=== PATIENT | female | born 1995 | race Caucasian/White ===

== ENCOUNTER 2016-09-13 14:28 | Outpatient (CLI) | payer MEDICAID | END 2016-09-13 15:04 | disposition home or self-care (01) | LOC: LC 14:28 | PROVIDERS: ATTEND Obstetrics & Gynecology | DX: Z36 Encounter for antenatal screening of mother (principal); Z3A.35 35 weeks gestation of pregnancy | CPT/HCPCS: 59025 ==

== ENCOUNTER → 2019-01-24 | Outpatient (CLI) | payer MEDICAID ==
--- NOTE | 2019-01-24 09:30 | RADIOLOGY REPORT (SQ) ---
EXAM DESCRIPTION: MRI LUMBAR SPINE WITHOUT COMPLETED DATE/TIME: 01/24/2019 8:44 am REASON FOR STUDY: LOW BACK PAIN M54.5 LOW BACK PAIN COMPARISON: None. TECHNIQUE: Sagittal and Axial imaging includes T1, T2, STIR and gradient echo sequences. Coronal T2/ HASTE imaging. LIMITATIONS: None. FINDINGS: VISUALIZED UPPER ABDOMEN: Limited evaluation. Gallstones. No acute or suspicious findin gs suggested. SEGMENTATION: No transitional anatomy. The lowest well-developed disc space is labeled L5-S1. ALIGNMENT: Anatomic. VERTEBRAE: Intact. BONE MARROW: Normal. No marrow replacement or reactive changes. DISC SIGNAL: Normal. No significant abnormal signal or loss of height. POSTERIOR ELEMENTS: Generally intact. No pars defect evident. Mild facet arthropathy in the lower lumbar spine. HARDWARE: Hardware in the thoracolumbar region with posterior screws and rods at L1 and L2. CORD AND CONUS: Normal in size and signal intensity. Conus at the appropriate level. SOFT TISSUES: No aortic aneurysm seen. No bulky retroperitoneal adenopathy or mass. No paraspinal mas s or fluid. L1-L2: No significant spinal stenosis or exit foraminal stenosis. L2-L3: No significant spinal stenosis or exit foraminal stenosis. L3-L4: No significant spinal stenosis or exit foraminal stenosis. L4-L5: No significant spinal stenosis or exit foraminal stenosis. L5-S1: No significant spinal stenosis or exit foraminal stenosis. LOWER THORACIC: Incompletely imaged. No stenosis seen. SACRUM: Visualized upper sacrum intact. OTHER: No other significant findings. IMPRESSION: 1. THORACOLUMBAR HARDWARE. MILD FACET ARTHROPATHY IN THE LOWER LUMBAR SPINE. NO OTHER SIGNIFICANT F INDINGS. NO DISC DISEASE, STENOSIS, OR IMPINGEMENT. 2. GALLSTONES. TECHNICAL DOCUMENTATION: JOB ID: [id number] [employer]- All Rights Reserved Reading location - IP/workstation name: [email or web address]
== END ==
LOC: RAD 07:50
PROVIDERS: ATTEND Physician Assistant
DX: M54.5 Low back pain (principal); K80.80 Other cholelithiasis without obstruction
CPT/HCPCS: 72148

== ENCOUNTER 2019-10-01 10:00 | Emergency (ER) | payer MEDICAID ==
[2019-10-01] MEDS ORDERED: CYCLOBENZAPRINE HCL 10 MG TABLET PO ONE (10:13)
[2019-10-01] MEDS ORDERED: KETOROLAC TROMETHAMINE 60 MG/2 ML SDV IM ONE (10:13)
[2019-10-01] MEDS ORDERED: METHYLPREDNISOLONE INJ 40 MG/1 ML SDV IM ONE (10:13)
--- NOTE | 2019-10-01 10:14 | ER Document Report ---
HPI - HPI Patient complains to provider of: back pain Time Seen by Provider: 10/01/19 10:07 Pain Level: 4 Context: 24-year-old female past medical history significant for scoliosis states she went to bend over to blow dry her hair and had sudden onset pain in her low back. Described as a pulling sensation. Patient has had 2 surgeries for scoliosis with hardware in her back. Denies falling or injuring her back. Did not take any medications prior to arrival. Came in by EMS. Denies . Denies any loss of control of her bowels or bladder. No saddle anesthesia. No red flags. Associated Symptoms: None Exacerbated by: Movement Relieved by: Remaining still Similar symptoms previously: Yes - History of scoliosis with surgery x2 Recently seen / treated by doctor: No - ROS Systems Reviewed and Negative: Yes All other systems reviewed and negative - CONSTITUTIONAL Constitutional: DENIES: Fever, Chills - NEURO Neurology: DENIES: Weakness - RESPIRATORY Respiratory: DENIES: Trouble Breathing - GASTROINTESTINAL Gastrointestinal: DENIES: Abdominal Pain, Nausea - URINARY Urinary: DENIES: Dysuria, Urgency, Frequency - REPRODUCTIVE Reproductive: DENIES: : - MUSCULOSKELETAL Musculoskeletal: REPORTS: Back Pain - DERM Skin Color: Normal Skin Problems: None Past Medical History - General Information source: Patient - Social History Smoking Status: Current Every Day Smoker Frequency of alcohol use: None Drug Abuse: None Family History: Reviewed & Not Pertinent Patient has homicidal ideation: No Past Surgical History: Reports: Hx Orthopedic Surgery - brown rods for scoliosis - Immunizations Hx Diphtheria, Pertussis, Tetanus Vaccination: Yes Vertical Provider Document - CONSTITUTIONAL Agree With Documented VS: Yes Exam Limitations: No Limitations General Appearance: Moderate Distress - INFECTION CONTROL TRAVEL OUTSIDE OF THE [place] IN LAST 30 DAYS: No - HEENT HEENT: Atraumatic, Normocephalic - NECK Neck: Normal Inspection, Supple, Thyroid Normal - RESPIRATORY Respiratory: Breath Sounds Normal, No Respiratory Distress, Chest Non-Tender - CARDIOVASCULAR Cardiovascular: Regular Rate, No Murmur - BACK Back: Abnormal Inspection - Nontender to palpation over the vertebral spine. Muscle spasms are palpated in the lower right lumbar region. Negative straight leg raising bilaterally.. negative: CVA Tenderness-Right, CVA Tenderness-Left - MUSCULOSKELETAL/EXTREMETIES Musculoskeletal/Extremeties: FROM, Non-Tender - NEURO Level of Consciousness: Awake, Alert Motor/Sensory: No Motor Deficit, No Sensory Deficit Deep Tendon Reflexes: 3+ Notes: Patellar reflexes equal and adequate bilaterally. Gait not tested secondary to pain. Course - Re-evaluation Re-evalutation: 10/01/19 11:43 Patient is resting comfortably with decreased pain. She is ambulatory with a steady gait. She is neurovascularly intact. Negative straight leg raising bilaterally. Reviewed x-ray results with patient. Counseled to take medications as prescribed. Follow-up with primary care physician if not proving in 2 to 3 days. Patient was given strict return to the emergency room guidelin es. Return for any new or worsening symptoms. All questions were answered. Patient verbalized understanding and agrees with plan of care. - Vital Signs Vital signs: Temp Pulse Resp BP Pulse Ox 98.2 F 74 16 102/65 100 10/01/19 10:12 10/01/19 10:12 10/01/19 10:12 10/01/19 10:12 10/01/19 10:12 - Diagnostic Test Radiology reviewed: Reports reviewed Discharge - Discharge Clinical Impression: Back pain with right-sided sciatica Condition: Stable Disposition: HOME, SELF-CARE Instructions: Low Back Pain ([facility]), Muscle Strain ([facility]), Sciatica ([facility]) Additional Instructions: You have been seen in the Emergency Department (ED) today for back pain. Your workup and exam have not shown any acute abnormalities and you are likely suffering from muscle strain or possible problems with your discs, but there is no treatment that will fix your symptoms at this time. Please take the medications as prescribed. Can also take Tylenol and/or Motrin as needed. You should also purchase a local lidocaine cream such as "aspercreme with lidocaine" and use per bottle instructions to the affected area. Apply heat to the area as often as you are able. Continue to keep active and avoid prolonged periods of bed rest. Please follow up with your doctor as soon as possible regarding today's ED visit and your back pain. Return to the ED for worsening back pain, fever, weakness or numbness of either leg, or if you develop either (1) an inability to urinate or have bowel movements, or (2) loss of your ability to control your bathroom functions (if you start having "accidents"), or if you develop other new symptoms that concern you.concern you. Prescriptions: Cyclobenzaprine HCl [Flexeril 10 mg Tablet] 10 mg PO TIDP PRN #15 tab PRN Reason: Methylprednisolone [Medrol Dosepack (4 mg/Tab) 21 Tab/Dosepak] 4 mg PO ASDIR PRN #21 tab.ds.pk PRN Reason: Forms: Return to Work Referrals: VELMA MATAMOROS PA [Primary Care Provider] - Follow up as needed
--- NOTE | 2019-10-01 11:29 | RADIOLOGY REPORT (SQ) ---
EXAM DESCRIPTION: L SPINE WHOLE IMAGES COMPLETED DATE/TIME: 10/01/2019 9:56 am REASON FOR STUDY: back pain COMPARISON: 12/25/2015 NUMBER OF VIEWS: Five views including obliques. TECHNIQUE: AP, lateral, oblique, and sacral radiographic images acquired of the lumbar spine. LIMITATIONS: None. FINDINGS: MINERALIZATION: Normal. SEGMENTATION: Normal. No transitional anatomy. ALIGNMENT: Mild residual scoliotic curvature with posterior fusion at the thoracolumbar junction. VERTEBRAE: Maintained height. No fracture or worrisome bone lesion. DISCS: Preserved height. No significant osteophytes or end plate irregularity. POSTERIOR ELEMENTS: Mild facet arthropathy at L5-S1. No significant neural foraminal stenosis. The posterior elements are intact. HARDWARE: Posterior fusion hardware partially visualized, with no significant interval change. No bustamante rdware fracture, subsidence or loosening. PARASPINAL SOFT TISSUES: Normal. PELVIS: Intact as visualized. No fractures or worrisome bone lesions. SI joints intact. OTHER: No other significant finding. IMPRESSION: No acute fracture or dislocation of the lumbar spine. Posterior fusion hardware without evidence of complication in the visualized lower component. TECHNICAL DOCUMENTATION: JOB ID: [id number] [employer]- All Rights Reserved Reading location - IP/workstation name: [email or web address]
[2019-10-01 11:56] VITALS: BP 120/76
== END 2019-10-01 11:56 | disposition home or self-care (01) ==
LOC: ER 10:00
DX: M54.31 Sciatica, right side (principal); M54.9 Dorsalgia, unspecified; M54.5 Low back pain; X50.3XXA Overexertion from repetitive movements, initial encounter; Y93.E8 Activity, other personal hygiene; F17.200 Nicotine dependence, unspecified, uncomplicated
CPT/HCPCS: 99283; 96372; 72110; J3490; J1885; J2920

== ENCOUNTER 2020-02-25 05:25 | Day surgery (SDC) | payer MEDICAID ==
[2020-02-21 13:13] LABS: APPEARANCE,URINE SLIGHTLY-CLOUDY; BILIRUBIN,URINE NEGATIVE (NEGATIVE); COLOR,URINE YELLOW; GLUCOSE, URINE NEGATIVE (NEGATIVE); KETONES,URINE NEGATIVE (NEGATIVE); LEUKOCYTE ESTERASE,URINE TRACE (NEGATIVE); NITRITE,URINE NEGATIVE (NEGATIVE); PROTEIN,URINE NEGATIVE (NEGATIVE); URINE SPECIFIC GRAVITY 1.015; UROBILINOGEN,URINE NEGATIVE mg/dL (<2.0)
[2020-02-21 13:13] LABS: HEMATOCRIT 36.6 % (36.0-47.0); MEAN CORPUSCULAR HEMOGLOBIN 29.2 pg (27.0-33.4); MEAN CORPUSCULAR HGB CONC 35.4 g/dL (32.0-36.0); MEAN CORPUSCULAR VOLUME 83 fl (80-97); PLATELET COUNT 237 10^3/uL (150-450); RED BLOOD COUNT 4.44 10^6/uL (3.72-5.28); RED CELL DISTRIBUTION WIDTH 13.3 % (11.5-14.0); WHITE BLOOD COUNT 7.2 10^3/uL (4.0-10.5)
[~2020-02-25 05:25] MED LIST: LACTATED RINGERS 1000 ML IV PRN; LIDOCAINE 0.5% INJ-PF (5 MG/ML) 50 ML SDV SUBCUT PRN
[2020-02-25] MEDS ORDERED: FENTANYL CITRATE INJ/PF 100 MCG/2 ML AMPUL ONE (06:47)
[2020-02-25] MEDS ORDERED: PROPOFOL INJ 200 MG/20 ML VIAL IV ONE (06:48)
[2020-02-25] MEDS ORDERED: EPHEDRINE SULFATE INJ 50 MG/1 ML AMPULE ONE (06:48)
[2020-02-25] MEDS ORDERED: MIDAZOLAM 2 MG/2 ML INJ ONE (06:48)
[2020-02-25] MEDS ORDERED: SUGAMMADEX SODIUM 200 MG/2 ML SDV IV ONE (06:57)
[2020-02-25] MEDS ORDERED: OXYCODONE-ACETAMINOPHEN 5-325 MG TABLET PO PRN ×3 (08:12→08:22)
[2020-02-25] MEDS ORDERED: FENTANYL CITRATE INJ/PF 100 MCG/2 ML AMPUL IV PRN ×3 (08:12)
[2020-02-25] MEDS ORDERED: DIPHENHYDRAMINE HCL 50 MG/ML VIAL IV PRN (08:12)
[2020-02-25] MEDS ORDERED: MORPHINE SULFATE 10 MG/ML INJ IV PRN (08:12)
[2020-02-25] MEDS ORDERED: PROMETHAZINE HCL INJ 25 MG/1 ML VIAL IV PRN ×2 (08:12)
[2020-02-25] MEDS ORDERED: MEPERIDINE HCL/PF INJ 25 MG/1 ML DISP.SYRIN IV PRN (08:12)
[2020-02-25] MEDS ORDERED: IBUPROFEN 800 MG TABLET PO PRN (08:22)
[2020-02-25] MEDS ORDERED: KETOROLAC TROMETHAMINE INJ/PF 30 MG/1 ML SDV IV PRN (08:22)
[2020-02-25] MEDS ORDERED: RINGERS SOLUTION,LACTATED 1,000 ML IV PRN (08:22)
[2020-02-25] MEDS ORDERED: GLYCOPYRROLATE INJ 0.4 MG/2 ML VIAL ONE (08:36)
--- NOTE | 2020-02-25 08:38 | Discharge Summary ---
Discharge Summary (SDC) - Discharge Final Diagnosis: encounter for tubal ligation. Date of Surgery: 02/25/20 Discharge Date: 02/25/20 Condition: Good Prescriptions: Oxycodone HCl/Acetaminophen [Percocet 5-325 mg Tablet] 1 tab PO Q4HP PRN #20 tablet PRN Reason: Ibuprofen [Motrin 800 mg Tablet] 800 mg PO Q8H PRN #30 tablet PRN Reason: Referrals: JUAN M SINGH FNP-C [Primary Care Provider] - Discharge Diet: Regular Discharge Activity: Slowly Increase Activity
--- NOTE | 2020-02-25 08:47 | Operative Report ---
Operative Report DATE OF SURGERY: 02/25/20 PREOPERATIVE DIAGNOSIS: Pt desires a laparoscopic tubal ligation. POSTOPERATIVE DIAGNOSIS: Same OPERATION: Laparoscopic tubal ligation with cautery. SURGEON: REJI QUEVEDO ANESTHESIA: GA TISSUE REMOVED OR ALTERED: Fallopian tubes. COMPLICATIONS: none ESTIMATED BLOOD LOSS: minimal INTRAOPERATIVE FINDINGS: Normal uterus tubes and ovaries PROCEDURE: The pt was taken to the or and placed in supine position. Anesthesia was induced. She was placed in dorsal lithotomy position with Sumit stirrups. An incision was made at the umbilicus. The natural umbilical defect was dialated with a erika clamp and a blunt port was placed. Laparoscopy confirmed appropriate placement. Each tube was identified and followed out to the fimbriated end. Each tube was cauterized at the midisthmic portion moving back towards the uterine cornu with 5 successive bites. Photos were taken. The gas was allowed to escape and the port and scope were removed. The fascia at the umbilicus was closed with 2-0 vicryl suture. The skin was closed with a running subcuticular vicryl suture. The sponge stick was removed from the vagina. The pt was extubated and taken to the recovery room in stable condition.
[2020-02-25] MEDS ORDERED: DIPHENHYDRAMINE HCL 50 MG/ML VIAL ONE ×2 (09:17→11:40)
[2020-02-25] MEDS: LABETALOL HCL INJ 20 MG/4 ML DISP.SYRIN IV ONE ×2 (09:20→09:30)
--- NOTE | 2020-02-25 09:58 | Discharge Summary ---
Discharge Summary (SDC) - Discharge Final Diagnosis: Encounter for tubal ligation Date of Surgery: 02/25/20 Condition: Good Prescriptions: Oxycodone HCl/Acetaminophen [Percocet 5-325 mg Tablet] 1 tab PO Q4HP PRN #20 tablet PRN Reason: Ibuprofen [Motrin 800 mg Tablet] 800 mg PO Q8H PRN #30 tablet PRN Reason: Referrals: JUAN M SINGH FNP-C [Primary Care Provider] - Discharge Activity: Slowly Increase Activity
[2020-02-25] MEDS ORDERED: OXYCODONE-ACETAMINOPHEN 5-325 MG TABLET ONE (10:09)
[2020-02-25 11:09] VITALS: BP 111/69
[2020-02-25] MEDS ORDERED: GLYCOPYRROLATE 1 MG/5 ML VIAL ONE (11:40)
[2020-02-25] MEDS ORDERED: KETOROLAC TROMETHAMINE 60 MG/2 ML SDV ONE (11:40)
[2020-02-25] MEDS ORDERED: ONDANSETRON HCL INJ/PF 4 MG/2 ML SDV ONE (11:40)
[2020-02-25] MEDS ORDERED: ROCURONIUM BROMIDE INJ 50 MG/5 ML VIAL IV ONE (11:40)
[2020-02-25] MEDS ORDERED: DEXAMETHASONE SOD PHOSPHATE INJ 4 MG/1 ML VIAL ONE (11:40)
[2020-02-25] MEDS ORDERED: NEOSTIGMINE METHYLSULFATE 10 MG/10 ML VIAL ONE (11:40)
== END 2020-02-25 11:05 | disposition home or self-care (01) ==
LOC: OROUT 05:25
PROVIDERS: ATTEND Obstetrics & Gynecology
DX: Z30.2 Encounter for sterilization (principal); Z03.818 Encounter for observation for suspected exposure to other biological agents ruled out; F17.290 Nicotine dependence, other tobacco product, uncomplicated
CPT/HCPCS: 36415; 85027; 87635; 81005; 81025; 00851; 58670; J2250; J3490 ×5; J1100; J1200; J1885; J3010; J2710; J2405; J2704; C9803; 851